=== PATIENT | female | born 1980 | race Caucasian/White ===

== ENCOUNTER 2024-06-11 06:35 | Day surgery (SDC) | payer BC ==
[2024-06-11] MEDS ORDERED: Propofol 200 MG/20 ML SDV IV ONE (06:36)
[2024-06-11] MEDS ORDERED: Midazolam 1 MG/ML 2 ML SDV IV ONE (06:36)
[2024-06-11] MEDS ORDERED: fentaNYL 100 MCG/2 ML SDV IV ONE (06:36)
[2024-06-11] MEDS ORDERED: Sodium Chloride 0.9% 10 ML Syringe FLUSH PRN (07:00)
[2024-06-11] MEDS: Lactated Ringers 1,000 ML IV SCH (07:30)
[2024-06-11] MEDS: Simethicone Drops 40 MG/0.6 ML 30 ML Bottle ONE (08:09)
== END 2024-06-11 09:55 | disposition home or self-care (01) ==
LOC: FB.SDS 06:35
PROVIDERS: ATTEND Surgery
DX: Z12.11 Encounter for screening for malignant neoplasm of colon (principal); Z80.0 Family history of malignant neoplasm of digestive organs
CPT/HCPCS: A9270-GY; J2250; J2704; J3010; J7120